=== PATIENT | female | born 1990 | race Caucasian/White ===

== ENCOUNTER 2018-03-31 13:31 | Inpatient (IN) | payer SELFPAY ==
[2018-03-31] VITALS (8 sets, daily range): BP systolic 113–181; BP diastolic 79–105
[~2018-03-31] VITALS: Ht 157.5 cm; Wt 53.1 kg
[2018-03-31 13:55] LABS: HEMATOCRIT 42.5 % (36.0-46.0); MCH 31.8 PG (29.0-34.0); MCHC 35.3 G/DL (30.0-36.0); PLATELET COUNT 197 K/uL (156-360); RBC DIS.WIDTH-CV 12.7 % (11.8-14.6); RBC DIS.WIDTH-SD 41.8 % (39-53); RED BLOOD COUNT 4.72 M/uL (3.80-5.20); WHITE BLOOD COUNT 9.6 K/uL (4.1-10.2)
[2018-03-31 14:24] LABS: AMPHETAMINE NEGATIVE (500 ng/mL); BENZODIAZEPINES PRESUMPTIVE POSITIVE (150 ng/mL); COCAINE PRESUMPTIVE POSITIVE (150 ng/mL); METHAMPHETAMINE NEGATIVE (500 ng/mL); OPIATES (MORPHINE) PRESUMPTIVE POSITIVE (100 ng/mL); PHENCYCLIDINE NEGATIVE (25 ng/mL); THC CANNABINOIDS PRESUMPTIVE POSITIVE (50 ng/mL); TRICYCLIC ANTIDEPRESSANTS NEGATIVE (300 ng/mL)
[2018-03-31 14:25] LABS: BARBITURATES NEGATIVE (200 ng/mL); BUPRENORPHINE NEGATIVE (10 ng/mL); METHADONE PRESUMPTIVE POSITIVE (200 ng/mL); OXYCODONE NEGATIVE (100 ng/mL); PROPOXYPHENE NEGATIVE (300 ng/mL)
[2018-03-31 14:56] LABS: BENZODIAZEPINES, URINE SCREEN POSITIVE (200 ng/mL)
[2018-03-31 15:08] LABS: CHLORIDE 111 mEq/L (99-109); POTASSIUM 4.1 mEq/L (3.7-5.4); SODIUM 146 mEq/L (136-147)
[2018-03-31 15:10] LABS: GLUCOSE 105 mg/dL (70-99)
[2018-03-31 15:13] LABS: SERUM ETHYL ALCOHOL < 10 mg/dL
[2018-03-31 15:14] LABS: CREATININE 0.8 mg/dL (0.6-1.3); GFR ESTIMATE (CALCULATED) > 59 mL/min/
[2018-03-31 15:15] LABS: UREA NITROGEN (BUN) 6 mg/dL (9-23)
[2018-03-31 15:27] LABS: QUANTITATIVE HCG < 4.0 MIU/ML
[2018-03-31 15:41] LABS: COMMENTS - BLOOD GASES A+C+; SITE RR
[2018-03-31 15:42] LABS: DEVICE VENT; FI02 70 %; MECHANICAL RATE 14 resp/min; MODE AC/VC; PEEP 5 CM/H20; TIDAL VOLUME 400 ML; TOTAL RESP RATE 14 resp/min
[2018-03-31 15:43] LABS: BASE EXCESS 0.1 mEq/L (-3 to +3); BICARBONATE 24.7 mEq/L (22-26); CARBOXY HGB 3.4 % (0-5); METHEMOGLOBIN 1.1 % (0-1.5); PCO2 39 mm Hg (35-45); PO2 348 mm Hg (80-100); pH 7.41 (7.35-7.45)
[2018-04-01] VITALS (33 sets, daily range): BP systolic 114–194; BP diastolic 70–108
[2018-04-01 05:36] LABS: BASOPHIL (%) 0.3 % (0-1); EOSINOPHIL COUNT 0.1 K/uL (0-0.3); HEMATOCRIT 44.9 % (36.0-46.0); IMMATURE GRANULOCYTE (%) 0.3 % (0.0-0.7); LYMPHOCYTE (%) 28.8 % (15-42); LYMPHOCYTE COUNT 3.3 K/uL (1.0-2.8); MCH 31.2 PG (29.0-34.0); MCHC 33.4 G/DL (30.0-36.0); MCV 93.3 FL (83-99); MONOCYTE (%) 5.9 % (3-12); MONOCYTE COUNT 0.7 K/uL (0-0.8); NEUTROPHIL (%) 63.7 % (45-76); NEUTROPHIL COUNT 7.4 K/uL (1.8-6.4); PLATELET COUNT 185 K/uL (156-360); RBC DIS.WIDTH-SD 44.5 % (39-53); RED BLOOD COUNT 4.81 M/uL (3.80-5.20); WHITE BLOOD COUNT 11.6 K/uL (4.1-10.2)
[2018-04-01 06:13] LABS: ALBUMIN 3.7 G/DL (3.2-4.8); ALKALINE PHOSPHATASE 54 IU/L (3-129); ALT (GPT) 17 IU/L (3-49); AST (GOT) 27 IU/L (2-34); CHLORIDE 114 MEQ/L (99-109); CREATININE 0.7 MG/DL (0.6-1.3); GFR ESTIMATE (CALCULATED) > 59 mL/min/; GLUCOSE 79 mg/dL (70-99); MAGNESIUM 2.1 mg/dl (1.3-2.7); PHOSPHORUS 2.2 mg/dL (2.5-4.9); POTASSIUM 3.4 MEQ/L (3.7-5.4); SODIUM 148 MEQ/L (136-147); TOTAL BILIRUBIN 0.5 MG/DL (0.0-1.0); TOTAL PROTEIN 6.3 G/DL (6.4-8.3); UREA NITROGEN (BUN) 5 mg/dL (9-23)
[2018-04-01 08:55] LABS: APPEARANCE CLEAR ((CLEAR)); BILIRUBIN NEGATIVE; BLOOD MODERATE; COLOR YELLOW ((YELLOW)); GLUCOSE (STRIP) NEGATIVE; KETONES 20; LEUKOCYTES NEGATIVE; NITRITE NEGATIVE; PROTEIN (STRIP) NEGATIVE; SPECIFIC GRAVITY 1.012 (1.000-1.030); UROBILINOGEN 0.2 MG/DL (0.2-1.0)
[2018-04-01 08:57] LABS: BACTERIA NONE SEEN /HPF; EPITHELIAL CELLS NONE SEEN /HPF; MUCUS TRACE /LPF; RED BLOOD CELLS 40-50 /HPF (0-5); UCUL ADDED? NO; WHITE BLOOD CELLS 0-5 /HPF (0-5)
[2018-04-01] MEDS ORDERED: BACLOFEN20 MG PO (11:18)
[2018-04-01] MEDS ORDERED: SERTRALINE HCL25 MG PO (11:19)
[2018-04-01] MEDS ORDERED: GABAPENTIN300 MG PO (11:19)
[2018-04-01] MEDS ORDERED: BUPROPION XL150 MG PO (11:19)
[2018-04-01] MEDS ORDERED: NARCAN4 MG NS (11:45)
[2018-04-01] MEDS ORDERED: METHADONE 22 MG/1 ML PO (16:51)
[2018-04-02] VITALS (12 sets, daily range): BP systolic 107–128; BP diastolic 59–84
[2018-04-02 08:19] LABS: BASOPHIL (%) 0.2 % (0-1); EOSINOPHIL COUNT 0.2 K/uL (0-0.3); HEMATOCRIT 37.9 % (36.0-46.0); HEMOGLOBIN 13.2 G/DL (11.9-15.5); IMMATURE GRANULOCYTE (%) 0.4 % (0.0-0.7); LYMPHOCYTE COUNT 2.3 K/uL (1.0-2.8); MCH 32.1 PG (29.0-34.0); MCHC 34.8 G/DL (30.0-36.0); MCV 92.2 FL (83-99); MONOCYTE (%) 4.8 % (3-12); MONOCYTE COUNT 0.7 K/uL (0-0.8); NEUTROPHIL (%) 78.6 % (45-76); NEUTROPHIL COUNT 11.8 K/uL (1.8-6.4); PLATELET COUNT 152 K/uL (156-360); RBC DIS.WIDTH-CV 12.6 % (11.8-14.6); RBC DIS.WIDTH-SD 42.5 % (39-53); RED BLOOD COUNT 4.11 M/uL (3.80-5.20)
[2018-04-02 08:59] LABS: CHLORIDE 107 MEQ/L (99-109); CREATININE 0.5 MG/DL (0.6-1.3); GFR ESTIMATE (CALCULATED) > 59 mL/min/; POTASSIUM 3.3 MEQ/L (3.7-5.4); UREA NITROGEN (BUN) 3 mg/dL (9-23)
[2018-04-02 09:00] LABS: GLUCOSE 116 mg/dL (70-99); SODIUM 139 MEQ/L (136-147)
[2018-04-02] MEDS ORDERED: AUGMENTIN875 MG PO (17:47)
== END 2018-04-02 17:57 | disposition left against medical advice (07) | DRG 917 ==
LOC: EME 13:31 → 4WEST 20:02 → EDOF 20:02 → ENRESERV 20:14 → 4WEST 20:45 → ENRESERV 04-02 09:41 → 5EAST 04-02 13:08
PROVIDERS: Emergency Medicine; Internal Medicine Critical Care Medicine
PROC: 5A09457 Assistance with Respiratory Ventilation, 24-96 Consecutive Hours, Continuous Positive Airway Pressure (ICD-10-PCS; principal; 2018-03-31)
PROC: 0BH17EZ Insertion of Endotracheal Airway into Trachea, Via Natural or Artificial Opening (ICD-10-PCS; 2018-03-31)
DX: T40.1X1A Poisoning by heroin, accidental (unintentional), initial encounter (principal); T40.7X1A Poisoning by cannabis (derivatives), accidental (unintentional), initial encounter; T40.5X1A Poisoning by cocaine, accidental (unintentional), initial encounter; T42.4X1A Poisoning by benzodiazepines, accidental (unintentional), initial encounter; J69.0 Pneumonitis due to inhalation of food and vomit; F11.20 Opioid dependence, uncomplicated; F14.10 Cocaine abuse, uncomplicated; F32.9 Major depressive disorder, single episode, unspecified; F41.9 Anxiety disorder, unspecified; F17.210 Nicotine dependence, cigarettes, uncomplicated; Z87.730 Personal history of (corrected) cleft lip and palate
CPT/HCPCS: 36600; 70450; 71045; 80048; 80053; 81003; 83735; 84100; 84702; 84999; 85025; 85027; 87040; 87070; 87086; 87205; 87641; 94002; 94003; 94760; 99281; 99285; C1751; G0480; J0295; J0330; J1650; J2060; J2250; J2310; J2704; J3010; J7040; J7050; J7120; S0028